=== PATIENT | female | born 1995 | race Two or more races ===

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

== ENCOUNTER 2017-11-16 16:49 | Emergency (ER) | payer SELFPAY ==
[2017-11-16 17:18] LABS: URINE HCG POC HCG NEGATIVE (Negative)
[2017-11-16] MEDS: HYDROcodone/APAP 5/325MG 1 TAB TABLET PO (17:25)
[2017-11-16] MEDS: KETOROLAC 60 MG/2 ML INJ. IM (17:26)
[2017-11-16 17:49] LABS: BILIRUBIN,URINE NEGATIVE (NEG); CLARITY,URINE CLOUDY; COLOR,URINE RED; GLUCOSE,URINE NEGATIVE (NEG); NITRITE,URINE NEGATIVE (NEG); PROTEIN,URINE 30 mg/dL (NEG-TRACE); UROBILINOGEN,URINE 0.2 mg/dL (0.2 mg/dL)
[2017-11-16 18:02] LABS: AMORPHOUS SEDIMENT,UR PRESENT /HPF; BACTERIA,URINE MOD /HPF (0-FEW); RBC,URINE TNTC /HPF (0-2); SQUAMOUS EPITHELIAL CELL,UR MOD /LPF
== END 2017-11-16 19:00 | disposition home or self-care (01) ==
LOC: ER 19:00
DX: S39.012A Strain of muscle, fascia and tendon of lower back, initial encounter (principal); X50.1XXA Overexertion from prolonged static or awkward postures, initial encounter; Y93.89 Activity, other specified; Y92.89 Other specified places as the place of occurrence of the external cause; Y99.8 Other external cause status
CPT/HCPCS: 72100; 81001; 81025; 96372; 99285-25; J1885

== ENCOUNTER 2018-09-19 18:42 | Emergency (ER) | payer SELFPAY ==
[~2018-09-19] VITALS: Ht 170.2 cm; Wt 99.8 kg
[~2018-09-19 18:42] MED LIST changes: +NITR100C62 PO; +TRAM50TA PO
[2018-09-19 20:22] VITALS: BP 137/83
[2018-09-19 20:49] LABS: BILIRUBIN,URINE NEGATIVE (NEG); CLARITY,URINE CLOUDY; COLOR,URINE YELLOW; NITRITE,URINE NEGATIVE (NEG); PROTEIN,URINE NEGATIVE (NEG-TRACE); UROBILINOGEN,URINE 0.2 mg/dL (0.2 mg/dL)
[2018-09-19 20:57] LABS: BACTERIA,URINE MODERATE /HPF (0-FEW); RBC,URINE 0 /HPF (0-2); SQUAMOUS EPITHELIAL CELL,UR MANY /LPF
--- NOTE | 2018-09-19 21:03 | PHYS DOC ---
Past Medical History Past Medical History: No Pertinent History (MARY CEBALLOS APRN) Past Surgical History: No Surgical History (MARY CEBALLOS APRN) Alcohol Use: None Drug Use: None (MARY CEBALLOS APRN) Adult General Chief Complaint Chief Complaint: BACK PAIN OR INJURY HPI HPI 22-year-old female presents to ER with complaints of left lower back pain radiating into her buttock and down her leg. Patient states she was at work and went to reach something reach something and turned her body to the side causing the left lower back pain. Patient denies any swelling in extremities. Patient denies incontinence of bowel or bladder. Patient denies urinary symptoms, vaginal symptoms, or change in bowel pattern. Patient denies any [id number] medications for the past couple of days. Patient states she has been ambulatory without difficulty but does have some increased pain with walking. She denies any injury. (MARY CEBALLOS APRN) Review of Systems Review of Systems Constitutional: Denies fever or chills [] Respiratory: Denies cough or shortness of breath [] Cardiovascular: No additional information not addressed in HPI [] GI: Denies abdominal pain, nausea, vomiting, bloody stools or diarrhea area. Denies saddle anesthesia : Denies dysuria or hematuria. Denies vaginal symptoms. Denies incontinence of bowel or bladder. Musculoskeletal: Reports left lower back pain radiating into mid buttock and down posterior left upper leg Integument: Denies rash, swelling or skin lesions [] Neurologic: Denies focal weakness or sensory changes [] All other systems were reviewed and found to be within normal limits, except as documented in this note. (MARY CEBALLOS APRN) Current Medications Current Medications Current Medications Medications (Trade) Dose Ordered Sig/Florencio Start Time Stop Time Status Last Admin Dose Admin Ibuprofen (Motrin) 600 mg 1X ONCE 09/19/18 21:30 09/19/18 21:30 DC Lidocaine (Lidoderm) 1 patch 1X ONCE 09/19/18 21:30 09/19/18 21:30 DC (SALEEM ASHLEY MD) Allergies Allergies Allergies Coded Allergies Type Severity Reaction Last Updated Verified shrimp Allergy Mild RASH 09/19/18 Yes (SLAEEM ASHLEY MD) Physical Exam Physical Exam Constitutional: Well developed, well nourished, no acute distress, non-toxic appearance. [] HENT: Normocephalic, atraumatic, oropharynx moist, nose normal. [] Eyes: Pupils equal, conjunctiva normal, no discharge. [] Neck: Normal range of motion, no tenderness, supple, no stridor. [] Cardiovascular: Heart rate regular rhythm, no murmur [] Lungs & Thorax: Bilateral breath sounds clear to auscultation- resp. equal/nonlabored Skin: Warm, dry, no erythema, no rash. [] Back: Tender on palpation left lower back into mid buttock-no swelling again discoloration, no CVA tenderness. [] Extremities: No tenderness, no cyanosis, no clubbing, ROM intact, no edema. 2+ bilateral posterior tibial and dorsalis pedis Neurologic: Alert and oriented X 3, normal motor function, normal sensory function, no focal deficits noted. [] Psychologic: Affect normal, judgement normal, mood normal. [] (REFFITTMARY APRN) Current Patient Data Vital Signs Vital Signs Date Time Temp Pulse Resp B/P (MAP) Pulse Ox O2 Delivery O2 Flow Rate FiO2 09/19/18 20:22 99.1 87 16 137/83 (101) 100 Room Air 99.1 (SALEEM ASHLEY MD) Lab Values Laboratory Tests Test 09/19/18 20:39 09/19/18 20:44 Urine Collection Type Unknown Urine Color Yellow Urine Clarity Cloudy Urine pH 5.0 Urine Specific [place] 1.020 Urine Protein Negative mg/dL (NEG-TRACE) Urine Glucose (UA) Negative mg/dL (NEG) Urine Ketones (Stick) Negative mg/dL (NEG) Urine Blood Negative (NEG) Urine Nitrite Negative (NEG) Urine Bilirubin Negative (NEG) Urine Urobilinogen Dipstick 0.2 mg/dL (0.2 mg/dL) Urine Leukocyte Esterase Large (NEG) Urine RBC 0 /HPF (0-2) Urine WBC 5-10 /HPF (0-4) Urine Squamous Epithelial Cells Many /LPF Urine Bacteria Moderate /HPF (0-FEW) Urine Mucus Marked /LPF POC Urine HCG, Qualitative Hcg negative (Negative) Microbiology 09/19/18 Urine Culture - Final, Complete 09/19/18 Urine Culture Result 1 (MILEY) - Final, Complete (SALEEM ASHLEY MD) EKG EKG [] (MARY CEBALLOS APRN) Radiology/Procedures Radiology/Procedures [] (MARY CEBALLOS APRN) Course & Med Decision Making Course & Med Decision Making Pertinent Labs reviewed. (See chart for details) Patient was evaluated in the ER for left lower back pain. Exam consistent with p robable sciatica which was discussed with patient. Orders placed for Lidoderm patch and dose of ibuprofen as she is taken nothing today for pain. UA with negative UCG she does have a UTI. Will provide prescription for Keflex. Patient encouraged to increase fluid intake and ice of Tylenol and or ibuprofen when necessary.Education provided on signs and symptoms to return to ER. Discharge instructions were discussed. Patient to follow-up with primary care physician if symptoms persist or with any concerns. (MARY CEBALLOS APRN) Course & Med Decision Making Staff Physician Addendum: I was working in the ER during the course of this patient's visit. I was available for consultation as needed, but I was not directly involved in the care of this patient. (SALEEM ASHLEY MD) Dragon Disclaimer Dragon Disclaimer This electronic medical record was generated, in whole or in part, using a voice recognition dictation system. (MARY CEBALLOS APRN) Departure Departure Impression: Primary Impression: UTI (lower urinary tract infection) Additional Impression: Back pain Disposition: 01 HOME, SELF-CARE Condition: STABLE Referrals: NO PCP (PCP) Patient Instructions: Back Pain, Adult, Urinary Tract Infection Additional Instructions: Drink plenty of fluids. Tylenol and/or ibuprofen as needed for pain as directed on container. If symptoms persist follow-up with your primary care physician. Scripts Cephalexin (KEFLEX) 500 Mg Capsule 1 CAP PO BID, #14 CAP 0 Refills Prov: MARY CEBALLOS APRN 09/19/18 Problem Qualifiers MARY CEBALLOS APRN September 19, 2018 21:03 SALEEM ASHLEY MD September 25, 2018 06:57
[2018-09-19] MEDS ORDERED: CEPH-264 PO (21:11)
[2018-09-19] MEDS ORDERED: LIDOCAINE (700MG/PATCH) PATCH. TD ONE (21:30)
[2018-09-19] MEDS ORDERED: IBUPROFEN 200 MG TABLET. PO ONE (21:30)
== END 2018-09-19 21:22 | disposition home or self-care (01) ==
LOC: ER 18:42
DX: N39.0 Urinary tract infection, site not specified (principal); M54.5 Low back pain; Z91.013 Allergy to seafood
CPT/HCPCS: 81001; 81025; 87086; 99284

== ENCOUNTER 2020-03-13 08:31 | Emergency (ER) | payer SELFPAY ==
[~2020-03-13] VITALS: Ht 170.2 cm; Wt 127.3 kg
[~2020-03-13 08:31] MED LIST changes: +CEPH-264 PO
[2020-03-13 08:35] VITALS: BP 149/70
--- NOTE | 2020-03-13 08:57 | ED.ADGEN ---
Past Medical History Past Medical History: No Pertinent History Past Surgical History: No Surgical History Smoking Status: Never Smoker Alcohol Use: None Drug Use: None General Adult EDM: Chief Complaint: SORE THROAT HPI: HPI: Patient is a 24-year-old previously healthy female presents to emergency room complaining of sore throat, painful swallowing, bilateral ear pain, facial pressure. This is been going on for the last couple of days. She had something similar last week that resolved for a couple of days before coming back. She has a minor cough. She does not have any shortness of breath, chest pain, congestion, nasal drainage, body aches, fever. She states that she gets something similar almost every month and believes that she needs to see a specialist. She has not been around anybody who has been ill. She has not tried to take anything for her symptoms. She is eating without difficulty. She does not have any shortness of breath with walking. Review of Systems: Review of Systems: General: Denies fever, chills, sweats, fatigue Eyes: Denies drainage, blurred vision, eye redness HENT: Denies rhinorrhea. Reports sore throat, earache, facial pressure Respiratory: Denies cough, shortness of breath, wheezing Cardiac: Denies edema, palpitations, chest pain GI: Denies abdominal pain, Nausea, vomiting MSK: Denies back pain, neck pain Skin: Denies rash, jaundice Neuro: Denies headache, dizziness Psychiatric: Denies SI/HI Allergies: Allergies: Allergies Coded Allergies Type Severity Reaction Last Updated Verified shrimp Allergy Mild RASH 09/19/18 Yes Physical Exam: PE: General: Awake, alert, NAD. Well Nourished, well hydrated. Cooperative HEENT: Atraumatic, EOMI, PERRL, airway patent, moist oral mucosa, bilateral tonsillar swelling with white patches, TM clear without erythema or retraction bilaterally Neck: Supple, trachea midline Respiratory: CTA bilaterally, normal effort, no wheezing/crackles CV: RRR, no murmur, cap refill <2 GI: Soft, nondistended, nontender, no masses MSK: No obvious deformities Skin: Warm, dry, intact Neuro: A&O x3, speech NL, sensory and motor grossly intact, no focal deficits Psych: Normal affect, normal mood, not suicidal or homicidal Current Patient Data: Labs: Laboratory Tests Test 03/13/20 08:48 03/13/20 09:13 Group A Streptococcus Rapid Negative (NEGATIVE) POC Urine HCG, Qualitative Hcg negative (Negative) Vital Signs: Vital Signs Date Time Temp Pulse Resp B/P (MAP) Pulse Ox O2 Delivery O2 Flow Rate FiO2 03/13/20 08:35 97.4 90 18 149/70 (96) 97 Room Air 97.4 EKG: EKG: [] Heart Score: Risk Factors: Risk Factors: DM, Current or recent (<one month) smoker, HTN, HLP, family history of CAD, obesity. Risk Scores: Score 0 - 3: 2.5% MACE over next 6 weeks - Discharge Home Score 4 - 6: 20.3% MACE over next 6 weeks - Admit for Clinical Observation Score 7 - 10: 72.7% MACE over next 6 weeks - Early Invasive Strategies Radiology/Procedures: Radiology/Procedures: [] Course & Med Decision Making: Course & Med Decision Making Pertinent Labs and Imaging studies reviewed. (See chart for details) Patient is a 24-year-old female who presents to the emergency room complaining of sore throat. This is a recurrent issue for her. Strep swab was done along with a test. Will refer her to ENT as she does not have insurance and they typically will see patients without insurance. Patient declined a Covid swab. Patient's test results and vitals while in the ED were fully reviewed and discussed with the patient. Patient is stable and at this time does not need admission to the hospital. We have discussed strict return precautions and the importance of following up with their Primary Care Physician. Patient stated understanding and was given an opportunity to ask any questions. Patient is in agreement with plan. Dragon Disclaimer: George Disclaimer: This electronic medical record was generated, in whole or in part, using a voice recognition dictation system. Departure Departure Impression: Primary Impression: Tonsillitis Disposition: 01 DC HOME SELF CARE/HOMELESS Condition: STABLE Referrals: NO PCP (PCP) Patient Instructions: Tonsillitis Additional Instructions: [facility] [address] [place] [address] MARIAN HOLMAN MD Mar 13, 2020 08:57
[2020-03-13] MEDS ORDERED: DEXAMETHASONE SOD PHOS 4 MG/ML VIAL IVP ONE (09:45)
== END 2020-03-13 09:45 | disposition home or self-care (01) ==
LOC: ER 08:31
DX: J03.90 Acute tonsillitis, unspecified (principal)
CPT/HCPCS: 81025; 87070; 87880; 96374; 99283; J1100